=== PATIENT | female | born 1945 | race Caucasian/White ===

== ENCOUNTER → 2017-01-01 | Outpatient (CLI) | payer BC ==
[~2017-01-01] MED LIST: CHOL100010 PO; CLTP PO; MULT-506 PO; PRLSR20 PO; [UNRECOGNIZED DRUG - REMARK] PO
--- NOTE | 2017-01-01 16:09 | MAMMOGRAPHY REPORT ---
BILATERAL DIGITAL SCREENING MAMMOGRAM TOMOSYNTHESIS WITH CAD: 01/01/2017 CLINICAL HISTORY: Asymptomatic. Personal history of breast cancer. TECHNIQUE: Breast tomosynthesis in addition to standard 2D mammography was performed. Current study was also evaluated with a Computer Aided Detection (CAD) system. COMPARISON: Comparison is made to exams dated: 06/08/2014 mammogram, 06/09/2013 mammogram, 04/26/2012 mammogram, and 06/17/2007 mammogram. BREAST COMPOSITION: There are scattered areas of fibroglandular density in both breasts. FINDINGS: No suspicious masses, calcifications, or areas of architectural distortion are noted in e ither breast. There has been no significant interval change compared to prior exams. There are stab le post surgical changes in the right upper outer quadrant, including density and architectural dist ortion seen within the right superior posterior breast on the MLO view. A linear scar marker denote s a scar on the right upper outer breast. Scattered bilateral benign-appearing calcifications are n ot significantly changed. Small nodular 5 mm asymmetry seen within the right breast middle depth on the cc view is stable dating back to at least the 2009 exam, and considered benign given long-term stability. Asymmetry in the left superior breast on the MLO view is also stable. IMPRESSION: ACR BI-RADS CATEGORY 2: BENIGN There is no mammographic evidence of malignancy. A 1 year screening mammogram is recommended. The p atient will receive written notification of the results. Approximately 10% of breast cancers are not detected with mammography. A negative mammographic repor t should not delay biopsy if a clinically suggestive mass is present. Saundra Arredondo M.D. ah/:01/01/2017 15:30:13 Director Digital Catalogue: Mercedes AYALA(Carly)(M), [facility] letter sent: Normal 1/2 BI-RADS Code: ACR BI-RADS Category 2: Benign
== END ==
LOC: C.MAMM 12:24
PROVIDERS: ATTEND Family Medicine
DX: Z12.31 Encounter for screening mammogram for malignant neoplasm of breast (principal); Z85.3 Personal history of malignant neoplasm of breast

== ENCOUNTER → 2017-01-25 | Outpatient (CLI) | payer BC ==
--- NOTE | 2017-01-25 11:54 | DIAGNOSTIC IMAGING REPORT ---
LEFT KNEE RADIOGRAPHS WITH COMPARISON STANDING AP RADIOGRAPH OF THE RIGHT KNEE CLINICAL HISTORY: Left knee pain. Generalized tenderness. COMPARISON: None FINDINGS: Comparison standing AP radiograph of the right knee demonstrates no significant abnormality. Alignment of the left knee is anatomic. There is no fracture or suspicious lesion. There is a small to moderate left knee joint effusion. Joint spaces are preserved. There is minimal osteophytosis. IMPRESSION: 1. Small to moderate left knee joint effusion. 2. No acute fracture. 3. Preserved joint spaces of left knee with minimal osteophytosis within the medial and patellofemoral compartments. Electronically signed by: Gaetano Pathak M.D. 01/25/2017 11:52 AM Dictated Date/Time: 01/25/2017 11:51 AM
[2017-01-25 12:32] LABS: HEMATOCRIT 42.5 % (37-47); MEAN CORPUSCULAR HEMOGLOBIN 30.8 pg (25-34); MEAN CORPUSCULAR HGB CONC 33.9 g/dl (32-36); MEAN PLATELET VOLUME 10.6 fL (7.4-10.4); PLATELET COUNT 228 K/uL (130-400); RED BLOOD COUNT 4.67 M/uL (4.2-5.4); WHITE BLOOD COUNT 5.13 K/uL (4.8-10.8)
[2017-01-25 12:49] LABS: ESTIMATED AVERAGE GLUCOSE 111 mg/dl; HA1C FLAG Normal (Normal)
[2017-01-25 13:03] LABS: CALCIUM 9.8 mg/dl (8.5-10.1)
[2017-01-25 13:04] LABS: BLOOD UREA NITROGEN 13 mg/dl (7-18); BUN/CREATININE RATIO 17.7 (10-20); CARBON DIOXIDE 31 mmol/L (21-32); CHLORIDE 105 mmol/L (98-107); CHOLESTEROL 283 mg/dl (0-200); CREATININE 0.71 mg/dl (0.60-1.20); GLUCOSE 92 mg/dl (70-99); POTASSIUM 4.2 mmol/L (3.5-5.1); SODIUM 142 mmol/L (136-145); TRIGLYCERIDES 131 mg/dl (0-150); VERY LOW DENSITY LIPOPROT CALC 26 mg/dl
[2017-01-25 13:08] LABS: CHOLESTEROL/HDL RATIO 3.8; HDL CHOLESTEROL 74 mg/dl; LDL CHOLESTEROL CALCULATED 183 mg/dl
--- NOTE | 2017-01-29 09:46 | CODING QUERY MEDICAL NECESSITY ---
SUPPORTING DIAGNOSIS NEEDED Mine BURCH, A supporting diagnosis is required for the test/procedure performed on this patient in order for us to be reimbursed by the patient's insurance. Please provide a supporting diagnosis for the following test/procedure listed below next to the test name along with your signature. *If there is no additional diagnosis for this patient that would support the following test/procedure please document that below next to the test/procedure. Test(s)/Procedure(s) that require a supporting diagnosis: * 60352 GLYCATED HEMOGLOBIN DIAGNOSIS: DATE OF SERVICE: 01/25/17 Provider Signature: Date: Thank you Solomon Martinez [facility] Information Management Once completed, please kindly fax back to [phone] For questions please call [phone]
== END | disposition home or self-care (01) ==
LOC: C.RAD 10:25
PROVIDERS: ATTEND Family Medicine
DX: Z00.00 Encounter for general adult medical examination without abnormal findings (principal); M25.562 Pain in left knee; E78.00 Pure hypercholesterolemia, unspecified; E55.9 Vitamin D deficiency, unspecified; R73.03 Prediabetes

== ENCOUNTER → 2017-02-10 | Outpatient (CLI) | payer BC ==
--- NOTE | 2017-02-10 11:10 | DIAGNOSTIC IMAGING REPORT ---
MRI OF THE LEFT KNEE NO CONTRAST CLINICAL HISTORY: ACUTE PAIN OF LEFT KNEE COMPARISON STUDY: Conventional radiographic study dated 01/25/2017 FINDINGS: Imaging was performed in sagittal, coronal, and axial planes. The quadriceps and patellar tendons appear intact. Anterior posterior cruciate ligaments appear intact. The patellar retinacular structures appear intact. There is mild chondromalacia patella. The medial and lateral collateral ligaments appear intact. 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 There is mild marrow edema involving the medial aspect of the medial tibial plateau likely degenerative basis. No tears a lateral meniscus are visualized. There is medial extrusion of the medial meniscus. There is a radial tear of the posterior horn.. There is a small joint effusion. IMPRESSION: 1. 3.2 mm of medial extrusion of the medial meniscus. There is an associated radial tear of the posterior horn 2. Medial joint compartment chondrosis 3. Minimal chondromalacia patella 4. No evidence of lateral meniscal tear 5. No evidence of cruciate or collateral ligament disruption Electronically signed by: Goldy Alanis M.D. 02/10/2017 11:09 AM Dictated Date/Time: 02/10/2017 11:02 AM
== END | disposition home or self-care (01) ==
LOC: C.MRI 09:22
PROVIDERS: ATTEND Orthopaedic Surgery
DX: S83.242A Other tear of medial meniscus, current injury, left knee, initial encounter (principal); X58.XXXA Exposure to other specified factors, initial encounter

== ENCOUNTER → 2017-02-16 | Outpatient (CLI) | payer BC | END | disposition home or self-care (01) | LOC: C.CPL 13:22 | PROVIDERS: ATTEND Orthopaedic Surgery | DX: M25.562 Pain in left knee (principal) ==

== ENCOUNTER → 2017-04-07 | Outpatient (CLI) | payer BC | END | disposition home or self-care (01) | LOC: C.LAB 12:01 | PROVIDERS: ATTEND Family Medicine | DX: Z00.00 Encounter for general adult medical examination without abnormal findings (principal); Z12.11 Encounter for screening for malignant neoplasm of colon ==

== ENCOUNTER → 2017-07-28 | Outpatient (CLI) | payer BC ==
[2017-07-28 11:05] LABS: ALT/SGPT 19 U/L (12-78); BLOOD UREA NITROGEN 15 mg/dl (7-18); BUN/CREATININE RATIO 24.2 (10-20); CALCIUM 8.8 mg/dl (8.5-10.1); CARBON DIOXIDE 27 mmol/L (21-32); CHLORIDE 106 mmol/L (98-107); CREATININE 0.63 mg/dl (0.60-1.20); GLUCOSE 93 mg/dl (70-99); MAGNESIUM 2.2 mg/dl (1.8-2.4); SODIUM 141 mmol/L (136-145)
[2017-07-28 11:08] LABS: CHOLESTEROL 277 mg/dl (0-200); CHOLESTEROL/HDL RATIO 2.9; HDL CHOLESTEROL 94 mg/dl; LDL CHOLESTEROL CALCULATED 165 mg/dl; TRIGLYCERIDES 89 mg/dl (0-150); VERY LOW DENSITY LIPOPROT CALC 18 mg/dl
[2017-07-28 11:12] LABS: ESTIMATED AVERAGE GLUCOSE 111 mg/dl; HA1C FLAG Normal (Normal)
== END | disposition home or self-care (01) ==
LOC: C.LAB 09:28
PROVIDERS: ATTEND Family Medicine
DX: E55.9 Vitamin D deficiency, unspecified (principal); E78.00 Pure hypercholesterolemia, unspecified; R73.03 Prediabetes; K21.9 Gastro-esophageal reflux disease without esophagitis

== ENCOUNTER → 2017-11-04 | Outpatient (CLI) | payer BC ==
--- NOTE | 2017-11-04 16:49 | DIAGNOSTIC IMAGING REPORT ---
CHEST 2 VIEWS ROUTINE CLINICAL HISTORY: 72 years-old Female presenting with R05 [id number]. TECHNIQUE: PA and lateral views of the chest were obtained. COMPARISON: 06/23/2012. FINDINGS: Atherosclerosis of the aortic arch. Cardiac silhouette normal in size. Lungs and pleural spaces clear. Osseous structures normal. Upper abdomen normal. IMPRESSION: 1. No acute cardiopulmonary disease. Electronically signed by: Lewis Quiñones M.D. 11/04/2017 4:48 PM Dictated Date/Time: 11/04/2017 4:47 PM
== END | disposition home or self-care (01) ==
LOC: C.RAD1850 16:36
PROVIDERS: ATTEND Nurse Practitioner Family
DX: R06.2 Wheezing (principal); R05 Cough

== ENCOUNTER → 2018-04-13 | Outpatient (CLI) | payer BC | END | disposition home or self-care (01) | LOC: C.PAPS 13:39 | PROVIDERS: ATTEND Obstetrics & Gynecology | DX: C50.919 Malignant neoplasm of unspecified site of unspecified female breast (principal); Z01.419 Encounter for gynecological examination (general) (routine) without abnormal findings ==